=== PATIENT | female | born 1970 | race Caucasian/White ===

== ENCOUNTER 2019-04-06 10:40 | Emergency (ER) | payer SELFPAY ==
[~2019-04-06] VITALS: Ht 152.4 cm; Wt 59.1 kg
[2019-04-06 11:05] VITALS: Ht 152.4 cm; Wt 59.1 kg
[2019-04-06] MEDS ORDERED: AUGMENTIN 875-11 TAB PO (11:52)
[2019-04-06] MEDS ORDERED: HYDROCODONE-A1 UDTA2 PO (12:00)
[2019-04-06 13:23] VITALS: BP 141/83
== END 2019-04-06 13:24 | disposition home or self-care (01) ==
LOC: D.ER 10:40
DX: S01.91XA Laceration without foreign body of unspecified part of head, initial encounter (principal); W55.01XA Bitten by cat, initial encounter; Y93.89 Activity, other specified; Y92.89 Other specified places as the place of occurrence of the external cause